=== PATIENT | male | born 1990 | race American Indian/Alaskan Native ===

== ENCOUNTER 2017-04-24 11:07 | Emergency (ER) | payer MEDICAID, OTHER ==
[2017-04-24 11:20] VITALS: BP 114/82
--- NOTE | 2017-04-24 11:27 | EDM.PDOC ---
ED HPI GENERAL MEDICAL PROBLEM - General Chief Complaint: Respiratory Problem Stated Complaint: TROUBLE BREATHING Time Seen by Provider: 04/24/17 11:27 Source of Information: Reports: Patient, Old Records, RN, RN Notes Reviewed History Limitations: Reports: No Limitations - History of Present Illness INITIAL COMMENTS - FREE TEXT/NARRATIVE: Arrives from home by POV with c/o one weeks duration of sore throat, dry cough, and headache. Admits to occ. mild nausea and fevers during the first few days of the illness, but not now. Denies chills, vomiting, diarrhea, constipation, abdominal pain, neck pain/stiffness, or rash. 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 Generalized Pain Score (Numeric/FACES): 8 - Related Data Allergies Allergy/AdvReac Type Severity Reaction Status Date / Time No Known Allergies Allergy Verified 04/24/17 11:19 Home Meds: Home Meds Acetaminophen [Tylenol Extra Strength] 1,000 mg PO ASDIRECTED 10/22/14 [History] Past Medical History - Past Health History Medical/Surgical History: Denies Medical/Surgical History HEENT History: Reports: Other (See Below) Other HEENT History: dental problems Social & Family History - Tobacco Use Smoking Status *Q: Light Tobacco Smoker Years of Tobacco use: 10 Packs/Tins Daily: 1 Used Tobacco, but Quit: No Second Hand Smoke Exposure: No - Caffeine Use Caffeine Use: Reports: Coffee, Soda - Alcohol Use Days Per Week of Alcohol Use: 0 - Recreational Drug Use Recreational Drug Use: Yes Recreational Drug Type: Reports: Marijuana/Hashish - Living Situation & Occupation Living situation: Reports: , with Family Occupation: Employed ED ROS GENERAL - Review of Systems Review Of Systems: ROS reveals no pertinent complaints other than HPI. ED EXAM, GENERAL - Physical Exam Exam: See Below Exam Limited By: No Limitations General Appearance: Alert, WD/WN, No Apparent Distress Eye Exam: Bilateral Eye: Normal Inspection Ears: Normal External Exam, Normal Canal, Hearing Grossly Normal, Normal TMs Nose: No Blood, Nasal Drainage (mild clear mucus nasal congestion) Throat/Mouth: Normal Lips, Normal Teeth, Normal Gums, Normal Voice, No Airway Compromise, Other (pharyngeal erythema, no exudates) Head: Atraumatic, Normocephalic Neck: Normal Inspection, Supple, Non-Tender, Full Range of Motion, Other (no nuchal rigidity). No: Lymphadenopathy (L), Lymphadenopathy (R) Respiratory/Chest: No Respiratory Distress, Lungs Clear, Normal Breath Sounds, No Accessory Muscle Use, Chest Non-Tender Cardiovascular: Normal Peripheral Pulses, Regular Rate, Rhythm, No Edema, No Gallop, No JVD, No Murmur, No Rub, Tachycardia GI/Abdominal: Normal Bowel Sounds, Soft, Non-Tender, No Distention, No Abnormal Bruit (Male) Exam: Deferred Rectal (Males) Exam: Deferred Back Exam: Normal Inspection Extremities: Normal Inspection Neurological: Alert, Oriented, CN II-XII Intact, Normal Cognition, Normal Gait, No Motor/Sensory Deficits Psychiatric: Normal Affect, Normal Mood Skin Exam: Warm, Dry, Intact, Normal Color, No Rash Course - Vital Signs Last Recorded V/S: Last Vital Signs Temp 36.2 C 04/24/17 11:16 Pulse 106 H 04/24/17 11:16 Resp 16 04/24/17 11:16 BP 114/82 04/24/17 11:16 Pulse Ox 100 04/24/17 11:16 - Orders/Labs/Meds Orders: Active Orders 24 hr Category Date Time Status CULTURE STREP A CONFIRMATION [] Stat Lab 04/24/17 11:14 Results STREP SCRN A RAPID W CULT CONF [] Stat Lab 04/24/17 11:14 Results Labs: Influenza A/B: Negative Rapid Strep: Negative - Radiology Interpretation Free Text/Narrative:: CXR: no acute process per Rad. report. Departure - Departure Time of Disposition: 12:31 Disposition: Home, Self-Care 01 Condition: Good Clinical Impression: Acute bronchitis Qualifiers: Bronchitis organism: unspecified organism Qualified Code(s): J20.9 - Acute bronchitis, unspecified Pharyngitis Qualifiers: Pharyngitis/tonsillitis etiology: unspecified etiology Qualified Code(s): J02.9 - Acute pharyngitis, unspecified - Discharge Information Instructions: Acute Bronchitis, [id number], Pharyngitis, [id number] Referrals: PCP,None [Primary Care Provider] - Forms: ED Department Discharge Additional Instructions: Rx: Z-Radhames 250mg Rx: Prednisone 20mg Rx: Tessalon Perles 200mg Frequent saltwater gargles until improved. Follow up in clinic if not improving in 3 to 5 days. - My Orders Last 24 Hours: My Active Orders 04/24/17 11:14 CULTURE STREP A CONFIRMATION [RM] Stat STREP SCRN A RAPID W CULT CONF [RM] Stat - Assessment/Plan Last 24 Hours: My Active Orders 04/24/17 11:14 CULTURE STREP A CONFIRMATION [RM] Stat STREP SCRN A RAPID W CULT CONF [RM] Stat
--- NOTE | 2017-04-24 12:33 | CR ---
Clinical history: 27-year-old male with cough. Interpretation: Normal cardiac silhouette and pulmonary vascularity without alveolar edema or depende nt effusion. Symmetric prominence of proximal pulmonary artery segments and generalized mild air trapping suggesti ng restrictive airway disease. Asthmatic? No peribronchial "cuffing", focal lobar pneumonia or atelectasis/collapse. Jeane thorax unremarkable. No pneumothorax. Normal midline tracheal airway. No foreign bodies. Conclusion: No lobar pneumonia or heart failure.
== END 2017-04-24 12:46 | disposition home or self-care (01) ==
LOC: DL.ED 11:07
DX: J20.9 Acute bronchitis, unspecified (principal); J02.9 Acute pharyngitis, unspecified; F17.210 Nicotine dependence, cigarettes, uncomplicated
CPT/HCPCS: 71046; 87081; 87430; 87804; 99283

== ENCOUNTER 2017-06-27 23:32 | Emergency (ER) | payer OTHER ==
[2017-06-27 23:45] VITALS: BP 103/71
[2017-06-28] MEDS ORDERED: Azithromycin 250 MG Tab PO ONE (01:17)
[2017-06-28] MEDS ORDERED: cefTRIAXone 1 GM, Lidocaine 1% 2.1 ML IM ONE ×2 (01:17)
--- NOTE | 2017-06-28 01:25 | EDM.PDOC ---
ED HPI GENERAL MEDICAL PROBLEM - General Chief Complaint: Abdominal Pain Stated Complaint: PELVIC PAIN [id number] Time Seen by Provider: 06/27/17 23:55 Source of Information: Reports: Patient History Limitations: Reports: No Limitations - History of Present Illness INITIAL COMMENTS - FREE TEXT/NARRATIVE: c/o lower abdominal pain and burning with urination. Has difficulty going at times. Started yesterday. Denies any discharge. Lower Abdominal Pain Score (Numeric/FACES): 10 - Related Data Allergies Allergy/AdvReac Type Severity Reaction Status Date / Time No Known Allergies Allergy Verified 06/27/17 23:45 Past Medical History - Past Health History Medical/Surgical History: Denies Medical/Surgical History HEENT History: Reports: Other (See Below) Other HEENT History: dental problems Genitourinary History: Reports: STD Social & Family History - Family History Family Medical History: Noncontributory - Tobacco Use Smoking Status *Q: Current Every Day Smoker Years of Tobacco use: 3 Packs/Tins Daily: 0.2 Used Tobacco, but Quit: No Second Hand Smoke Exposure: No - Caffeine Use Caffeine Use: Reports: None - Alcohol Use Days Per Week of Alcohol Use: 0 - Recreational Drug Use Recreational Drug Use: Yes Drug Use in Last 12 Months: Yes Recreational Drug Type: Reports: Marijuana/Hashish Recreational Drug Use Frequency: Daily - Living Situation & Occupation Living situation: Reports: , with Family Occupation: Employed ED ROS GENERAL - Review of Systems Review Of Systems: ROS reveals no pertinent complaints other than HPI. ED EXAM, GI/ABD - Physical Exam Exam: See Below Exam Limited By: No Limitations General Appearance: No Apparent Distress (, awakened for exam, states pain resolved) Eyes: Bilateral: EOMI Ears: Normal External Exam Nose: Normal Inspection Throat/Mouth: Normal Inspection Head: Atraumatic, Normocephalic Neck: Normal Inspection Respiratory/Chest: No Respiratory Distress, Lungs Clear Cardiovascular: Regular Rate, Rhythm GI/Abdominal Exam: Normal Bowel Sounds, Soft, Tender (suprapubic) Back Exam: Normal Inspection. No: CVA Tenderness (L), CVA Tenderness (R) Extremities: Normal Inspection Neurological: Alert, Oriented, Normal Cognition Psychiatric: Anxious Skin Exam: Warm, Dry, Intact, Normal Color Course - Vital Signs Last Recorded V/S: Last Vital Signs Temp 97 F 06/27/17 23:38 Pulse 93 06/27/17 23:38 Resp 19 06/27/17 23:38 BP 103/71 06/27/17 23:38 Pulse Ox 100 06/27/17 23:38 - Orders/Labs/Meds Labs: Laboratory Tests 06/28/17 06/28/17 06/28/17 Range/Units 00:00 00:00 00:00 Urine Color Cancelled Yellow Urine Appearance Cancelled Slightly cloudy Urine pH Cancelled 5.5 Ur Specific [place] Cancelled > 1.030 H Urine Protein Cancelled 100 H Urine Glucose (UA) Cancelled Negative Urine Ketones Cancelled Negative Urine Occult Blood Cancelled Large H Urine Nitrite Cancelled Negative Urine Bilirubin Cancelled Small H Urine Urobilinogen Cancelled 0.2 Ur Leukocyte Esterase Cancelled Negative Urine RBC 20-30 H /HPF Urine WBC 5-10 H (0-5/HPF) /HPF Ur Epithelial Cells Moderate H /HPF Calcium Oxalate Crystal Few H /HPF Urine Bacteria Moderate H (0-FEW/HPF) /HPF Urine Mucus Many H /LPF Urine Trichomonas Present H (0/HPF) /HPF Urine Yeast Few H (0/HPF) /HPF Urine Opiates Screen Negative (NEGATIVE) Ur Oxycodone Screen Negative (NEGATIVE) Urine Methadone Screen Negative (NEGATIVE) Ur Barbiturates Screen Negative (NEGATIVE) U Tricyclic Antidepress Negative (NEGATIVE) Ur Phencyclidine Scrn Negative (NEGATIVE) Ur Amphetamine Screen Positive H (NEGATIVE) U Methamphetamines Scrn Positive H (NEGATIVE) Urine MDMA Screen Positive H (NEGATIVE) U Benzodiazepines Scrn Negative (NEGATIVE) Urine Cocaine Screen Negative (NEGATIVE) U Marijuana (THC) Screen Positive H (NEGATIVE) Chlamydia/GC Source C.trachomatis RNA (TMA) (Negative) N.gonorrhoeae RNA (TMA) (Negative) 06/28/17 Range/Units 00:18 Urine Color Urine Appearance Urine pH Ur Specific [place] Urine Protein Urine Glucose (UA) Urine Ketones Urine Occult Blood Urine Nitrite Urine Bilirubin Urine Urobilinogen Ur Leukocyte Esterase Urine RBC /HPF Urine WBC (0-5/HPF) /HPF Ur Epithelial Cells /HPF Calcium Oxalate Crystal /HPF Urine Bacteria (0-FEW/HPF) /HPF Urine Mucus /LPF Urine Trichomonas (0/HPF) /HPF Urine Yeast (0/HPF) /HPF Urine Opiates Screen (NEGATIVE) Ur Oxycodone Screen (NEGATIVE) Urine Methadone Screen (NEGATIVE) Ur Barbiturates Screen (NEGATIVE) U Tricyclic Antidepress (NEGATIVE) Ur Phencyclidine Scrn (NEGATIVE) Ur Amphetamine Screen (NEGATIVE) U Methamphetamines Scrn (NEGATIVE) Urine MDMA Screen (NEGATIVE) U Benzodiazepines Scrn (NEGATIVE) Urine Cocaine Screen (NEGATIVE) U Marijuana (THC) Screen (NEGATIVE) Chlamydia/GC Source Urine C.trachomatis RNA (TMA) Negative (Negative) N.gonorrhoeae RNA (TMA) Positive H (Negative) Meds: Medications Discontinued Medications Generic Name Dose Route Start Last Admin Trade Name Freq PRN Reason Stop Dose Admin Azithromycin 1,000 mg 06/28/17 01:17 06/28/17 01:28 Zithromax PO 06/28/17 01:18 1,000 mg ONETIME ONE Administration Ceftriaxone Sodium 1 gm/ 0 gm 06/28/17 01:17 06/28/17 01:26 Lidocaine HCl 2.1 ml IM 06/28/17 01:18 2.1 inj ONETIME ONE Administration Departure - Departure Time of Disposition: 01:23 Disposition: Home, Self-Care 01 Condition: Good Clinical Impression: Dysuria, Trichimoniasis, Positive urine drug screen, Sexually transmitted infectious disease Abdominal pain Qualifiers: Abdominal location: generalized Qualified Code(s): R10.84 - Generalized abdominal pain - Discharge Information Instructions: Sexually Transmitted Disease Forms: ED Department Discharge
== END 2017-06-28 01:35 | disposition home or self-care (01) ==
LOC: DL.ED 23:32
DX: A59.9 Trichomoniasis, unspecified (principal); R10.84 Generalized abdominal pain; R10.30 Lower abdominal pain, unspecified; R30.0 Dysuria; R82.5 Elevated urine levels of drugs, medicaments and biological substances; F17.210 Nicotine dependence, cigarettes, uncomplicated
CPT/HCPCS: 80305; 81001; 87491; 87591; 96372; 99284; A9270; J0696; 99283

== ENCOUNTER 2021-02-21 21:25 | Emergency (ER) | payer OTHER ==
[2021-02-21] MEDS ORDERED: Lidocaine 1% with EPINEPHrine 1:100,000 20 ML MDV INJECT ONE (21:58)
--- NOTE | 2021-02-21 21:58 | EDM.PDOC ---
ED HPI GENERAL MEDICAL PROBLEM - General Stated Complaint: CUT LEFT HAND OPEN Time Seen by Provider: 02/21/21 21:54 Source of Information: Reports: Patient History Limitations: Reports: No Limitations - History of Present Illness INITIAL COMMENTS - FREE TEXT/NARRATIVE: 31 y/o M states he was trimming a plastic guard off a hair clipper when the razor blade slipped and he cut into his L palm below the thumb. Pt states he is up to date on his tetanus. Denies loc, other injury, drugs, etoh. - Related Data Allergies Allergy/AdvReac Type Severity Reaction Status Date / Time No Known Allergies Allergy Verified 02/21/21 22:00 Past Medical History - Past Health History Medical/Surgical History: Denies Medical/Surgical History HEENT History: Reports: Other (See Below) Other HEENT History: dental problems Genitourinary History: Reports: STD Social & Family History - Family History Family Medical History: No Pertinent Family History - Caffeine Use Caffeine Use: Reports: None - Living Situation & Occupation Living situation: Reports: , with Family Occupation: Employed Review of Systems - Review of Systems Review Of Systems: Comprehensive ROS is negative, except as noted in HPI. ED EXAM, GENERAL - Physical Exam Exam: See Below Exam Limited By: No Limitations General Appearance: Alert, No Apparent Distress Respiratory/Chest: No Respiratory Distress, Lungs Clear, Normal Breath Sounds, No Accessory Muscle Use, Chest Non-Tender Cardiovascular: Normal Peripheral Pulses, Regular Rate, Rhythm, No Edema, No Gallop, No JVD, No Murmur, No Rub Peripheral Pulses: 2+: Radial (L), Radial (R) Extremities: Other (5cm crescent shaped full thickness laceraton about the thenar emminence. ) ED TRAUMA EXTREMITY PROCEDURES - Laceration/Wound Repair Left Lateral Hand Lac/Wound Length In cm: 5 Appearance: Subcutaneous Distal NVT: Neuro & Vascular Intact Anesthetic Type: Local Local Anesthesia - Lidocaine (Xylocaine): 1% with EPI Local Anesthetic Volume: Other (7) Skin Prep: Saline Exploration/Debridement/Repair: Wound Explored Closed With: Sutures Suture Size: 4-0 # of Sutures: 9 Suture Type: Interrupted Course - Vital Signs Last Recorded V/S: Last Vital Signs Temp 99 F 02/21/21 22:00 Pulse 107 H 02/21/21 22:00 Resp 18 02/21/21 22:00 BP 141/73 H 02/21/21 22:00 Pulse Ox 100 02/21/21 22:00 - Orders/Labs/Meds Orders: Active Orders 24 hr Category Date Time Status Bacitracin [Bacitracin Oint 1 GM] Med 02/21/21 22:38 Once 1 dose TOP ONETIME ONE Meds: Medications Discontinued Medications Generic Name Dose Route Start Last Admin Trade Name Lamont PRN Reason Stop Dose Admin Lidocaine/Epinephrine 20 ml 02/21/21 21:58 02/21/21 22:05 Lidocaine 1% With Epinephrine 1:100,000 20 Ml Mdv INJECT 02/21/21 21:59 20 ml ONETIME ONE Administration Departure - Departure Time of Disposition: 22:40 Disposition: Home, Self-Care 01 Condition: Good Clinical Impression: Laceration of hand Qualifiers: Encounter type: initial encounter Foreign body presence: without foreign body Laterality: left Qualified Code(s): S61.412A - Laceration without foreign body of left hand, initial encounter - Discharge Information *PRESCRIPTION DRUG MONITORING PROGRAM REVIEWED*: Not Applicable *COPY OF PRESCRIPTION DRUG MONITORING REPORT IN PATIENT JOSE: Not Applicable Instructions: Laceration Care, Adult, [id number] Additional Instructions: Use tylenol or Ibuprofen for pain as needed. Leave the stitches in for 10-14 days. Keep the wound covered with a dressing and triple antibiotic ointment or bacitracin to help it heal. If any new symptoms or concerns develop contact your primary care facility or return to the ER. Sepsis Event Note (ED) - Focused Exam Vital Signs: Vital Signs Temp Pulse Resp BP Pulse Ox 02/21/21 22:00 99 F 107 H 18 141/73 H 100 - My Orders Last 24 Hours: My Active Orders 02/21/21 22:38 Bacitracin [Bacitracin Oint 1 GM] 1 dose TOP ONETIME ONE - Assessment/Plan Last 24 Hours: My Active Orders 02/21/21 22:38 Bacitracin [Bacitracin Oint 1 GM] 1 dose TOP ONETIME ONE
[2021-02-21 22:04] VITALS: BP 141/73; PULSE 107
[2021-02-21] MEDS ORDERED: Bacitracin Oint 1 GM U/D Packet TOP ONE (22:38)
== END 2021-02-21 22:50 | disposition home or self-care (01) ==
LOC: DL.ED 21:25
DX: S61.412A Laceration without foreign body of left hand, initial encounter (principal); W26.8XXA Contact with other sharp object(s), not elsewhere classified, initial encounter
CPT/HCPCS: 12002; 99282-25

== ENCOUNTER 2022-06-10 12:27 | Emergency (ER) | payer MEDICAID, OTHER ==
[2022-06-10] MEDS ORDERED: Sodium Chloride 0.9% 10 ML Syringe FLUSH PRN (12:55)
[2022-06-10 13:10] VITALS: BP 115/77; PULSE 87
[2022-06-10 13:21] LABS: AMPHETAMINES,URINE NEGATIVE (NEGATIVE); BARBITURATES,URINE NEGATIVE (NEGATIVE); BENZODIAZEPINE,URINE NEGATIVE (NEGATIVE); MDMA (ECSTASY), URINE NEGATIVE (NEGATIVE); METHADONE,URINE NEGATIVE (NEGATIVE); METHAMPHETAMINES,URINE NEGATIVE (NEGATIVE); OPIATES,URINE NEGATIVE (NEGATIVE); OXYCODONE,URINE NEGATIVE (NEGATIVE); PHENCYCLIDINE,URINE NEGATIVE (NEGATIVE); TCA,URINE NEGATIVE (NEGATIVE)
[2022-06-10 13:41] LABS: PTT,PARTIAL THROMBOPLSTIN TIME 23.4 SEC (22.0-34.0)
[2022-06-10 13:51] LABS: ANION GAP 12.1 mEq/L (7-13); CHLORIDE,CL 103 mmol/L (98-107); ESTIMATED GFR 124 mL/min (>=60); SODIUM,NA 138 mmol/L (136-145)
[2022-06-10] MEDS ORDERED: Iopamidol 755 Mg/ML 100 ML Bottle IVPUSH ONE (14:23)
[2022-06-10] MEDS ORDERED: Fluconazole/Normal Saline 200 MG in Premix Bag 1 BAG IV ONE (14:55)
== END 2022-06-10 16:20 | disposition home or self-care (01) ==
LOC: DL.ED 12:27
DX: J18.9 Pneumonia, unspecified organism (principal); B37.41 Candidal cystitis and urethritis; F12.90 Cannabis use, unspecified, uncomplicated; Z72.0 Tobacco use
CPT/HCPCS: 36415; 71045; 71260; 80053; 80305; 80307; 81001; 83605; 83735; 84145; 84484; 85025; 85379; 85610; 85730; 86140; 93005; 93010; 96365; 99284; 99285; J1450; J3490; Q9967

== ENCOUNTER 2024-11-19 12:10 | Emergency (ER) | payer MEDICAID, OTHER ==
[2024-11-19 12:23] VITALS: BP 145/83; PULSE 82
[2024-11-19] MEDS: Diphtheria,Pertussis(Acell),Tetanus Vaccine 0.5 ML Syringe IM ONE (12:28)
[2024-11-19] MEDS: Take Home: Cephalexin 500 MG Cap, 6 Cap Pack PO ONE (12:48)
== END 2024-11-19 12:56 | disposition home or self-care (01) ==
LOC: DL.ED 12:10
DX: S81.811A Laceration without foreign body, right lower leg, initial encounter (principal); Z23 Encounter for immunization; V86.55XA Driver of 3- or 4- wheeled all-terrain vehicle (ATV) injured in nontraffic accident, initial encounter; Y93.89 Activity, other specified
CPT/HCPCS: 90471; 90715; 99283; A9270